=== PATIENT | male | born 1940 | race Two or more races ===

== ENCOUNTER 2020-08-04 14:51 | Emergency (ER) | payer MEDICARE, OTHER ==
[~2020-08-04] VITALS: Ht 180.3 cm; Wt 91.6 kg
[2020-08-04] MEDS ORDERED: TDAP [DIPH/PERTUSSIS/TET] 0.5 ML VIAL IM ONE ×2 (15:30→16:23)
--- NOTE | 2020-08-04 15:43 | NUR ---
79 years old male alert, oriented x4 presents to er by ambulance after mechanical fall, left eyebrow laceration cleaned with normal saline and dermabond applied per Dr Rosales.patient went to [place].
[2020-08-04 18:03] VITALS: BP 128/70
== END 2020-08-04 18:11 | disposition home or self-care (01) ==
LOC: ER 14:55
DX: S01.112A Laceration without foreign body of left eyelid and periocular area, initial encounter (principal); M10.9 Gout, unspecified; W10.1XXA Fall (on)(from) sidewalk curb, initial encounter; Y93.89 Activity, other specified; Y92.89 Other specified places as the place of occurrence of the external cause; Y99.8 Other external cause status
CPT/HCPCS: 12011; 70450; 72125; 73030; 90471; 90715; 99285; A6403

== ENCOUNTER 2024-07-29 19:13 | Inpatient (IN) | payer MEDICARE, OTHER ==
[~2024-07-29] VITALS: Ht 170.2 cm; Wt 82.6 kg
[2024-07-29 20:04] LABS: BASOPHILS # (AUTO) 0.1 K/uL (0.0-0.2); EOSINOPHILS # (AUTO) 0.3 K/uL (0.0-0.7); EOSINOPHILS % (AUTO) 2.9 % (0.0-6.0); HEMATOCRIT 37 % (39-51); HEMOGLOBIN 12.2 g/dL (13.5-17.5); LYMPHOCYTES # (AUTO) 1.5 K/uL (0.8-4.8); LYMPHOCYTES % (AUTO) 15.2 % (20.0-44.0); MEAN CORPUSCULAR HEMOGLOBIN 20 PG (26.0-33.0); MEAN CORPUSCULAR HGB CONC 33 g/dl (31.0-36.0); MEAN CORPUSCULAR VOLUME 62 fL (80-96); MONOCYTES # (AUTO) 0.7 K/uL (0.1-1.30); MONOCYTES % (AUTO) 6.9 % (2.0-12.0); NEUTROPHILS # (AUTO) 7.5 K/uL (1.8-8.9); PLATELET COUNT (AUTO) 295 K/uL (150-450); RED BLOOD CELL COUNT(AUTO) 6.06 MIL/uL (4.5-6.0); RED CELL DISTRIBUTION WIDTH 16.7 % (11.5-15.0); WHITE BLOOD COUNT (AUTO) 10.1 K/uL (4.3-11.0)
[2024-07-29 20:08] LABS: CALCIUM, SERUM 8.7 mg/dL (8.5-10.1); CARBON DIOXIDE 26 mmol/L (21-32); CHLORIDE 105 mmol/L (98-107); GLUCOSE 134 mg/dL (74-106); POTASSIUM 3.6 mmol/L (3.5-5.1); SODIUM SERUM 138 mmol/L (136-145); UREA NITROGEN, BLOOD 15 mg/dL (7-18)
[2024-07-29] MEDS ORDERED: IOHEXOL-350 100 ML VIAL IV ONE (20:20)
[2024-07-29] MEDS ORDERED: IV NS 0.9% 250 ML IV ONE (20:21)
[2024-07-29] MEDS ORDERED: CT SWABBABLE VALVE TRANS SET 1 EA INFUS.SET MC ONE (20:21)
[2024-07-29] MEDS ORDERED: MAG HYDROX/AL HYDROX/SIMETH 30 ML UDC PO PRN (23:00)
[2024-07-29] MEDS ORDERED: ACETAMINOPHEN 325 MG TABLET PO PRN (23:00)
[2024-07-29] MEDS ORDERED: ONDANSETRON HCL/PF 4 MG/2 ML VIAL IVP PRN (23:00)
[2024-07-29] MEDS ORDERED: NITROGLYCERIN 30 GM TUBE TP PRN (23:00)
[2024-07-29] MEDS: ENOXAPARIN SODIUM 40 MG/0.4 ML DISP.SYRIN SQ SCH (23:52)
[2024-07-30] VITALS: BP_SYST 126; BP_SYST 150; BP_DIAS 75; BP_DIAS 85; TEMP 97.7; TEMP 97.9; O2SAT 95; O2SAT 97
[2024-07-30 04:00] VITALS: BP_SYST 145; BP_DIAS 108; BP_DIAS 98; TEMP 97.7; O2SAT 95; O2SAT 99
[2024-07-30 06:59] LABS: CALCIUM, SERUM 8.4 mg/dL (8.5-10.1); CARBON DIOXIDE 27 mmol/L (21-32); CHLORIDE 105 mmol/L (98-107); CREATININE 0.8 mg/dL (0.6-1.3); GLUCOSE 110 mg/dL (74-106); MAGNESIUM 2.2 mg/dL (1.8-2.4); NT-PRO BNP 103 pg/mL (0-125); PHOSPHORUS 3.8 mg/dL (2.5-4.9); POTASSIUM 3.8 mmol/L (3.5-5.1); SODIUM SERUM 139 mmol/L (136-145); UREA NITROGEN, BLOOD 12 mg/dL (7-18)
[2024-07-30 07:11] LABS: BASOPHILS # (AUTO) 0.1 K/uL (0.0-0.2); EOSINOPHILS # (AUTO) 0.4 K/uL (0.0-0.7); HEMATOCRIT 36 % (39-51); HEMOGLOBIN 11.9 g/dL (13.5-17.5); LYMPHOCYTES # (AUTO) 1.5 K/uL (0.8-4.8); LYMPHOCYTES % (AUTO) 15.6 % (20.0-44.0); MEAN CORPUSCULAR HEMOGLOBIN 20 PG (26.0-33.0); MEAN CORPUSCULAR HGB CONC 33 g/dl (31.0-36.0); MEAN CORPUSCULAR VOLUME 61 fL (80-96); MONOCYTES # (AUTO) 0.6 K/uL (0.1-1.30); MONOCYTES % (AUTO) 5.9 % (2.0-12.0); NEUTROPHILS # (AUTO) 6.9 K/uL (1.8-8.9); NEUTROPHILS % (AUTO) 73.5 % (43.0-81.0); PLATELET COUNT (AUTO) 242 K/uL (150-450); RED BLOOD CELL COUNT(AUTO) 5.96 MIL/uL (4.5-6.0); RED CELL DISTRIBUTION WIDTH 16.2 % (11.5-15.0); WHITE BLOOD COUNT (AUTO) 9.4 K/uL (4.3-11.0)
[2024-07-30] MEDS: PANTOPRAZOLE 40 MG TABLET.DR PO SCH (07:30)
[2024-07-30 08:00] VITALS: BP 135/64; TEMP 97.7; O2SAT 97
[2024-07-30] MEDS ORDERED: ALFU10TA10 PO (08:51)
[2024-07-30] MEDS ORDERED: ASPI-1420 PO (08:51)
[2024-07-30] MEDS ORDERED: ROSU10TA2 PO (08:51)
[2024-07-30] MEDS ORDERED: MYRBETRIQ PO (08:51)
[2024-07-30] MEDS ORDERED: ALLO300T2 PO (08:51)
[2024-07-30 12:00] VITALS: BP 117/71; TEMP 97.9; O2SAT 96
[2024-07-30 16:00] VITALS: BP 118/70; TEMP 97.3; O2SAT 98
[2024-07-30 20:00] VITALS: BP 105/61; TEMP 98.3; O2SAT 97
[2024-07-30] MEDS: MAGNESIUM HYDROXIDE 30 ML UDC PO PRN (21:45)
[2024-07-31] VITALS: BP 112/72; TEMP 98.1; O2SAT 95
[2024-07-31 04:00] VITALS: BP 114/61; TEMP 98.4; O2SAT 96
[2024-07-31 08:00] VITALS: BP 112/75; TEMP 98.2; O2SAT 96
[2024-07-31] MEDS: PANTOPRAZOLE 40 MG TABLET.DR PO SCH (09:30)
[2024-07-31] MEDS: ALLOPURINOL 100 MG TABLET PO SCH (09:50)
[2024-07-31] MEDS: ASPIRIN EC 81 MG TABLET.DR PO SCH (09:51)
[2024-07-31 12:00] VITALS: BP 121/72; TEMP 97.7; O2SAT 97
[2024-07-31] MEDS ORDERED: KETO10TA2 PO (13:28)
[2024-07-31 13:58] VITALS: BP 115/71; O2SAT 97
[2024-07-31] MEDS: KETOROLAC TROMETHAMINE 10 MG TABLET PO ONE (14:00)
[2024-07-31 16:00] VITALS: BP 129/80; TEMP 97.7; O2SAT 97
[2024-07-31] MEDS ORDERED: ATORVASTATIN 10 MG TABLET PO SCH (22:00)
== END 2024-07-31 17:31 | disposition home or self-care (01) | DRG 206 ==
LOC: ER 19:18 → TELE1 22:12
PROVIDERS: ADMIT Nurse Practitioner Family; ATTEND Nurse Practitioner Family
DX: M94.0 Chondrocostal junction syndrome [Tietze] (principal); D68.59 Other primary thrombophilia; M10.9 Gout, unspecified; E66.01 Morbid (severe) obesity due to excess calories; K80.20 Calculus of gallbladder without cholecystitis without obstruction; R79.89 Other specified abnormal findings of blood chemistry; R73.9 Hyperglycemia, unspecified; R91.1 Solitary pulmonary nodule; D50.9 Iron deficiency anemia, unspecified; I51.7 Cardiomegaly; I25.10 Atherosclerotic heart disease of native coronary artery without angina pectoris; Z88.2 Allergy status to sulfonamides; Z79.899 Other long term (current) drug therapy; Z79.82 Long term (current) use of aspirin; Z77.090 Contact with and (suspected) exposure to asbestos; E07.9 Disorder of thyroid, unspecified
CPT/HCPCS: 36415; 71045-TC; 71250-TC; 80048-TC; 83735-TC; 83880; 84100-TC; 84443-TC; 84484-TC; 85025-TC; 85378-TC; 93307-TC; G0378; J1650; J7050; Q9967

== ENCOUNTER 2024-10-28 14:50 | Emergency (ER) | payer MEDICARE, OTHER ==
[~2024-10-28] VITALS: Ht 167.6 cm; Wt 79.4 kg
[~2024-10-28 14:50] MED LIST: ALFU10TA10 PO; ALLO300T2 PO; ASPI-1420 PO; KETO10TA2 PO; MYRBETRIQ PO; ROSU10TA2 PO
[2024-10-28 15:10] VITALS: TEMP 98.6
[2024-10-28 15:22] LABS: APPEARANCE,URINE CLEAR (CLEAR); BLOOD, URINE Trace-intact Ery/uL (NEGATIVE); LEUKOCYTE ESTERASE ,URINE Trace (NEGATIVE); UGLUCOSE Negative (NEGATIVE)
[2024-10-28 15:23] LABS: NITRITE, URINE NEGATIVE (NEGATIVE)
[2024-10-28 15:38] LABS: ADD URINE CULTURE NO; SQUAMOUS EPITHELIAL CELL,UR 0-2 /HPF (None Seen)
[2024-10-28 18:23] VITALS: BP 109/61; O2SAT 96
== END 2024-10-28 18:10 | disposition home or self-care (01) ==
LOC: ER 14:56
DX: R10.32 Left lower quadrant pain (principal); M10.9 Gout, unspecified; Z79.82 Long term (current) use of aspirin; Z79.899 Other long term (current) drug therapy; Z88.2 Allergy status to sulfonamides; Z60.2 Problems related to living alone
CPT/HCPCS: 76870-TC; 81001

== ENCOUNTER 2024-12-09 04:00 | Emergency (ER) | payer MEDICARE, OTHER ==
[~2024-12-09] VITALS: Ht 162.6 cm; Wt 72.6 kg
[2024-12-09 04:27] LABS: PLATELET COUNT (AUTO) 207 K/uL (150-450); RED BLOOD CELL COUNT(AUTO) 5.47 MIL/uL (4.5-6.0); RED CELL DISTRIBUTION WIDTH 16.6 % (11.5-15.0); WHITE BLOOD COUNT (AUTO) 6.5 K/uL (4.3-11.0)
[2024-12-09 04:39] LABS: CALCIUM, SERUM 8.3 mg/dL (8.5-10.1); CREATININE 0.8 mg/dL (0.6-1.3); SODIUM SERUM 141 mmol/L (136-145); UREA NITROGEN, BLOOD 16 mg/dL (7-18)
[2024-12-09 04:40] LABS: INR 1.1 (0.91-1.10)
[2024-12-09 07:14] VITALS: BP 126/78; TEMP 98.1; O2SAT 96
== END 2024-12-09 07:20 | disposition home or self-care (01) ==
LOC: ER 04:02
DX: M79.602 Pain in left arm (principal); E78.5 Hyperlipidemia, unspecified; M10.9 Gout, unspecified; Z79.82 Long term (current) use of aspirin; Z79.899 Other long term (current) drug therapy; Z86.73 Personal history of transient ischemic attack (TIA), and cerebral infarction without residual deficits; Z88.2 Allergy status to sulfonamides
CPT/HCPCS: 36415; 71045-TC; 80048-TC; 84484-TC; 85025-TC; 85730-TC